=== PATIENT | female | born 2000 | race Caucasian/White ===

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

== ENCOUNTER 2018-10-01 01:41 | Emergency (ER) | payer OTHER ==
[2018-10-01 01:58] VITALS: BMI 35.2
[2018-10-01] MEDS ORDERED: ACETAMINOPHEN 500 MG TABLET (FP) PO ONE (02:10)
[2018-10-01] MEDS ORDERED: SODIUM CHLORIDE 1,000 ML IV STA (02:18)
--- NOTE | 2018-10-01 02:18 | PDOC ---
History of Present Illness - General Chief Complaint: Cold Symptoms Stated Complaint: FEVER/BACK PAIN/6MO Time Seen by Provider: 10/01/18 02:00 History Source: Patient Exam Limitations: No Limitations - History of Present Illness Initial Comments: 10/01/18 02:16 HISTORY OF PRESENT ILLNESS: This is a 18-year-old who is 24 weeks gestation presents emergency Department with 3 days of nasal congestion, fevers , sore throat, myalgias. Patient reports she felt symptoms were improving after a couple of days but have not which is why she is seeking care today. Patient denies any change in oral intake. She denies any nausea or vomiting. Patient reports taking Motrin for fevers and pain. Patient denies any RAT BREEDER complaints at this time. No recent travel or sick contacts. PAST MEDICAL HISTORY: Denies past medical history SURGICAL HISTORY: Denies ALLERGIES: No known drug allergies REVIEW OF SYSTEMS General/Constitutional: +fever. Denies weakness, weight change. HEENT: Denies change in vision. Denies ear pain or discharge. +sore throat. Cardiovascular: Denies chest pain or shortness of breath. Respiratory: Moist productive cough. Denies wheezing, or hemoptysis. Gastrointestinal: Denies nausea, vomiting, diarrhea or constipation. Denies rectal bleeding. Genitourinary: Denies dysuria, frequency, or change in urination. Musculoskeletal: +myalgias. Denies neck or back pain. Skin and breasts: Denies rash or easy bruising. Neurologic: Denies headache, vertigo, loss of consciousness, or loss of sensation. Psychiatric: Denies depression or anxiety. Endocrine: Denies increased thirst. Denies abnormal weight change. Hematologic/Lymphatic: Denies anemia, easy bleeding, or history of blood clots. Allergic/Immunologic: Denies hives or skin allergy. Denies latex allergy. PHYSICAL EXAM General Appearance: Well-appearing, appropriately dressed. No apparent distress , no intoxication. HEENT: EOMI, PERRLA, normal voice, TMs retracted bilaterally. No conjunctival pallor. No photophobia, scleral icterus. Oropharynx erythematous without lesions or exudate. Cobblestoning noted in the posterior. No nasal discharge present. Neck: Supple. Trachea midline. No tenderness, rigidity, carotid bruit, stridor , or thyromegaly. Nontender anterior cervical lymphadenopathy present. Respiratory/Chest: Lungs CTAB. No shortness of breath, chest tenderness, respiratory distress, accessory muscle use. No crackles, rales, rhonchi, stridor , wheezing, dullness Cardiovascular: RRR. S1, S2. No JVD, murmur, bradycardia, tachycardia. Vascular Pulses: Dorsalis-Pedis (R): 2+, Dorsalis-Pedis (L): 2+ Gastrointestinal/Abdominal: Normal bowel sounds. Gravid abdomen. No tenderness or rebound tenderness. No organomegaly, pulsatile mass, guarding, hernia, hepatomegaly, splenomegaly. Musculoskeletal/Extremities: Normal inspection. FROM of all extremities, normal capillary refill. Pelvis Stable. No CVA tenderness. No tenderness to extremities, pedal edema, swelling, erythema or deformity. Integumentary: Appropriate color, dry, warm. No cyanosis, erythema, jaundice or rash Neurologic: retail sales director II-XII intact. Fully oriented, alert. Appropriate mood/affect. Motor strength 5/5. No appreciable EOM palsy, facial droop or sensory deficit. Past History - Past Medical History Allergies/Adverse Reactions: Allergies Allergy/AdvReac Type Severity Reaction Status Date / Time No Known Allergies Allergy Verified 04/19/17 16:06 Home Medications: Ambulatory Orders Cephalexin Monohydrate [Keflex -] 500 mg PO BID #14 capsule 10/01/18 Asthma: No Cancer: No Cardiac Disorders: No COPD: No Diabetes: No HTN: No Seizures: No Thyroid Disease: No - Suicide/Smoking/Psychosocial Hx Smoking History: Unknown if ever smoked Have you smoked in the past 12 months: No Number of Cigarettes Smoked Daily: 0 Information on smoking cessation initiated: No Hx Alcohol Use: No Drug/Substance Use Hx: No Substance Use Type: None Hx Substance Use Treatment: No *Physical Exam - Vital Signs Last Vital Signs Temp Pulse Resp BP Pulse Ox 100.9 F H 134 H 20 120/73 97 10/01/18 01:48 10/01/18 01:48 10/01/18 01:48 10/01/18 01:48 10/01/18 01:48 Moderate Sedation - Procedure Monitoring Vital Signs: Procedure Monitoring Vital Signs Temperature 100.9 F H 10/01/18 01:48 Pulse Rate 134 H 10/01/18 01:48 Respiratory Rate 20 10/01/18 01:48 Blood Pressure 120/73 10/01/18 01:48 O2 Sat by Pulse Oximetry (%) 97 10/01/18 01:48 Medical Decision Making - Medical Decision Making 10/01/18 02:17 A/P: 18-year-old female at 24 weeks gestation with 3 days of flulike symptoms Influenza testing Urinalysis Urine culture Tylenol 975 mg orally Normal saline 1 L 10/01/18 03:57 Influenza testing is negative. Urinalysis with 2+ protein, trach's leuk esterase, 11 WBCs and 2 RBCs. As patient is of street urinary tract infection with Keflex 500 mg twice a day for 7 days. Patient to go to labor and delivery for assessment I discussed the physical exam findings, ancillary test results and final diagnoses with the patient. I answered all of the patient's questions. The patient was satisfied with the care received and felt comfortable with the discharge plan and treatment plan. The patient will call their primary care physician within 24 hours to arrange follow-up and will return to the Emergency Department with any new, persistent or worsening symptoms. *DC/Admit/Observation/Transfer Diagnosis at time of Disposition: UTI (urinary tract infection) Qualifiers: Urinary tract infection type: acute cystitis Hematuria presence: without hematuria Qualified Code(s): N30.00 - Acute cystitis without hematuria - Discharge Dispostion Disposition: HOME Condition at time of disposition: Stable Decision to Admit order: No - Prescriptions Prescriptions: Cephalexin Monohydrate [Keflex -] 500 mg PO BID #14 capsule - Referrals Referrals: Carey Montesinos MD [Staff Physician] - - Patient Instructions Printed Discharge Instructions: DI for Common Cold Additional Instructions: Rest, drink lots of fluids: Teas, water, soups Lots of handwashing and good hygiene Continue [id number] medications for symptomatic relief Tylenol or Motrin for fever and pain Continue all of antibiotics until completed Followup with private physician in one week for repeat urinalysis/reevaluation Return to emergency department for worsened symptoms, fevers, dehydration - Post Discharge Activity
[2018-10-01 02:32] LABS: URINE APPEARANCE CLEAR; URINE BILIRUBIN NEGATIVE (<2.0 mg/dL); URINE COLOR YELLOW; URINE GLUCOSE (UA) NEGATIVE (NEGATIVE); URINE KETONE NEGATIVE (NEGATIVE); URINE LEUK ESTERASE TRACE (NEGATIVE); URINE NITRITE NEGATIVE (NEGATIVE); URINE PROTEIN 2+ (NEGATIVE); URINE UROBILINOGEN 4.0 E.U/dl mg/dL (0.2-1.0)
[2018-10-01 02:33] LABS: EPI CELLS RARE /HPF (FEW); URINE BACTERIA RARE /hpf (NONE SEEN); URINE MUCUS RARE
[2018-10-01] MEDS ORDERED: ACETAMINOPHEN INJECTION 100 ML IVPB ONE (02:40)
[2018-10-01] MEDS ORDERED: ACETAMINOPHEN 325 MG TABLET (FP) ONE (02:43)
--- NOTE | 2018-10-01 02:45 | PDOC ---
*Physical Exam - Vital Signs Last Vital Signs Temp Pulse Resp BP Pulse Ox 100.9 F H 134 H 20 120/73 97 10/01/18 01:48 10/01/18 01:48 10/01/18 01:48 10/01/18 01:48 10/01/18 01:48 ED Treatment Course - ADDITIONAL ORDERS Additional order review: Laboratory Results 10/01/18 02:20 Urine Color Yellow Urine Appearance Clear Urine pH 7.0 Ur Specific [place] 1.014 Urine Protein 2+ H Urine Glucose (UA) Negative Urine Ketones Negative Urine Blood Negative Urine Nitrite Negative Urine Bilirubin Negative Urine Urobilinogen 4.0 e.u/dl H Ur Leukocyte Esterase Trace Urine WBC (Auto) 11 Urine RBC (Auto) 2 Ur Epithelial Cells Rare Urine Bacteria Rare Urine Mucus Rare - Medications Given in the ED: ED Medications Discontinued Medications Generic Name Dose Route Start Last Admin Trade Name Freq PRN Reason Stop Dose Admin Acetaminophen 975 mg 10/01/18 02:10 10/01/18 02:32 Tylenol - PO 10/01/18 02:11 975 mg ONCE ONE Administration Medical Decision Making - Medical Decision Making 10/01/18 02:44 Patient seen by the advanced practice provider under my direct supervision. Ancillary testing reviewed as necessary. I agree with plan as outlined by the advanced practice provider. *DC/Admit/Observation/Transfer Diagnosis at time of Disposition: UTI (urinary tract infection) Qualifiers: Urinary tract infection type: acute cystitis Hematuria presence: without hematuria Qualified Code(s): N30.00 - Acute cystitis without hematuria - Discharge Dispostion Disposition: HOME Condition at time of disposition: Stable - Prescriptions Prescriptions: Cephalexin Monohydrate [Keflex -] 500 mg PO BID #14 capsule - Referrals - Patient Instructions Additional Instructions: Rest, drink lots of fluids: Teas, water, soups Lots of handwashing and good hygiene Continue [id number] medications for symptomatic relief Tylenol or Motrin for fever and pain Continue all of antibiotics until completed Followup with private physician in one week for repeat urinalysis/reevaluation Return to emergency department for worsened symptoms, fevers, dehydration - Post Discharge Activity
[2018-10-01 04:49] VITALS: BP 113/59; PULSE 103; TEMP 97.7
== END 2018-10-01 05:30 | disposition home or self-care (01) ==
LOC: JER 01:41
PROC: 3E0337Z Introduction of Electrolytic and Water Balance Substance into Peripheral Vein, Percutaneous Approach (ICD-10-PCS; principal; 2018-10-01)
DX: N30.00 Acute cystitis without hematuria (principal); O26.892 Other specified pregnancy related conditions, second trimester; Z3A.24 24 weeks gestation of pregnancy
CPT/HCPCS: 81003; 81015; 87086; 87804; 96360; 99283-25; J7030

== ENCOUNTER 2019-01-03 13:50 | Inpatient (IN) | payer OTHER ==
[2019-01-03 14:56] VITALS: BMI 36.9
[2019-01-03 15:13] LABS: BASO % 0.4 % (0-2.0); EOS % 0.3 % (0-4.5); HEMATOCRIT 33.4 % (32.4-45.2); HEMOGLOBIN 11.3 GM/dL (10.7-15.3); LYMPH % 25.5 % (8-40); MCHC 33.6 g/dl (32.0-36.0); MEAN PLT VOLUME 10.7 fl (7.5-11.1); MONO % 3.5 % (3.8-10.2); NEUT % 70.3 % (42.8-82.8); PLATELET COUNT 209 K/MM3 (134-434); RBC 3.63 M/mm3 (3.60-5.2); RDW 14.2 % (11.6-15.6); WHITE BLOOD COUNT 10.3 K/mm3 (4.0-10.0)
[2019-01-03 15:27] LABS: CALCIUM 8.6 mg/dL (8.5-10.1); CREATININE 0.6 mg/dL (0.55-1.3); POTASSIUM 3.8 mmol/L (3.5-5.1)
[2019-01-03 15:30] LABS: INR 0.92 (0.83-1.09); PROTHROMBIN TIME (PATIENT) 10.9 SEC (9.7-13.0)
[2019-01-03] MEDS ORDERED: ELECTROLYTE-148 SOLN 1,000 ML IV SCH (15:30)
[2019-01-03 15:33] LABS: ACTIVATED PTT 27.7 SECONDS (25.2-36.5)
--- NOTE | 2019-01-03 15:38 | HP ---
Past Medical History - Admission Chief Complaint: Uterine contractions History of Present Illness: 18yo @ 39+ks here with uterine contractions. No VB/LOF. +FM. PNC at [address] [place] [address], uncomplicated History Source: Patient - Past Medical History APPEALS EXAMINER: No: Alzheimer's, CVA, Dementia, Migraine, Multiple Sclerosis, Peripheral Neuropathy, Parkinson's, Seizure, Syncope, TIA, Vertigo, Other Cardiovascular: No: AFIB, Aneurysm, Aortic Insufficiency, Aortic Stenosis, CAD, CHF, Deep Vein Thrombosis, HTN, Hyperlipdemia, MS, Mitral Insufficiency, Mitral Stenosis, Murmur, Pulmonary Hypertension, Other Pulmonary: No: Asthma, Bronchitis, Cancer, COPD, O2 Dependent, Pneumonia, Previously Intubated, Pulmonary Embolus, Pulmonary Fibrosis, Sleep Apnea, Other Gastrointestinal: No: Ascites, Cancer, Constipation, Crohn's Disease, Diverticulitis, Diverticulosis, Esophageal Varices, Gastritis, GERD, GI Bleed, Hemorrhoids, Hiatal Hernia, Inflamatory Bowel Disease, Irritable Bowel Disease, Pancreatitis, Peptic Ulcer Disease, Ulcerative Colitis, Other Hepatobiliary: No: Cirrhosis, Cholelithiasis, Cholecystitis, Choledocholithiasis , Hepatitis A, Hepatitis B, Hepatitis C, Other Renal/: No: Renal Failure, Renal Inusuff, BPH, Cancer, Hematuria, Hemodialysis , Neurogenic Bladder, Renal Calculi, UTI, Other Reproductive: No: Ectopic , Endometriosis, Fibroids, PID, Polycystic Ovary Syndrome, Postmenopausal, Other ...: 2 ...Para: 1 ...Term: 1 ...: 0 ...Spon : 0 ...Induced : 0 ...Multiple Gestation: 0 ...LMP: 04/01/18 ... Weeks Gestation by Dates: 39.4 ...EDC by Dates: 01/06/18 Heme/Onc: No: Anemia, B12 Deficiency, Bleeding Disorder, Cancer, Current Chemotherapy, Current Radiation Therapy, Hemochromatosis, Hypercoaguable State, Myeloproliferative Synd, Sickle Cell Disease, Sickle Cell Trait, Thrombocytopenia, Other Infectious Disease: No: AIDS, C-Diff, Herpes Zoster, HIV, MRSA, STD's, Tuberculosis, VREF, Other Psych: No: Addictions, Anxiety, Bipolar, Depression, Panic, Psychosis, Schizophrenia, Other Musculoskeletal: No: Bursitis, Chronic low back pain, Hemiparesis, Hemiplegia, Osteoarthritis, Paraplegia, Other Rheumatology: No: Fibromyalgia, Gout, Lupus, Rheumatoid Arthritis, Sarcoidosis, Vasculitis, Other ENT: No: Allergic Rhinitis, Sinusitis, Other Endocrine: No: Comal's Disease, Alexandr's Disease, Diabetes Insipidus, Diabetes Mellitus, Hyperparathyroidism, Hyperthyroidism, Hypothyroidism, Osteopenia, SIADH, Other Dermatology: No: Basal Cell, Cellulitis, Eczema, Melanoma, Psoriasis, Squamous Cell, Other - Past Surgical History Past Surgical History: Yes: None Hx Myomectomy: No Hx Transabdominal Cerclage: No - Smoking History Smoking history: Unknown if ever smoked Have you smoked in the past 12 months: No Aproximately how many cigarettes per day: 0 - Alcohol/Substance Use Hx Alcohol Use: No History of Substance Use: reports: None - Social History Usual Living Arrangement: Yes: Alone, With Spouse, With Significant Other ADL: Independent History of Recent Travel: No Home Medications - Allergies Allergies/Adverse Reactions: Allergies Allergy/AdvReac Type Severity Reaction Status Date / Time No Known Allergies Allergy Verified 01/03/19 14:19 - Home Medications Home Medications: Ambulatory Orders Tablet 1 tab PO DAILY 01/03/19 Physical Exam - Maternity Vital Signs: Vital Signs Temperature 98.3 F 01/03/19 15:00 Pulse Rate 100 H 01/03/19 15:00 Respiratory Rate 18 01/03/19 15:00 Blood Pressure 121/75 01/03/19 15:00 O2 Sat by Pulse Oximetry (%) Constitutional: Yes: Well Nourished, No Distress, Calm Eyes: Yes: WNL, Conjunctiva Clear, EOM Intact HENT: Yes: WNL, Atraumatic, Normocephalic Neck: Yes: WNL, Supple, Trachea Midline Cardiovascular: Yes: WNL, Regular Rate and Rhythm Breast(s): Yes: WNL - Abdominal Exam/OB Number of Fetuses: Single Presentation: Vertex Contractions: Yes Regularity: Regular Intensity: Mod/Strong Monitor Mode: External Heart Rate Location: LUQ Accelerations: Non-Uniform Decelerations: None - Vaginal Exam/OB Vaginal Bleediing: No Dilatation (cm): 6-7 Effacement (%): 100 Amniotic Membrane Status: Intact Presentation: Vertex/Position Station: -2 - Physical Exam Edema: No - Labs Lab Results: CBC, BMP 01/03/19 14:15 01/03/19 14:15 Assessment/Plan 18yo @ 39.4wks here in labor Admit to L&D NPO, IVFs GBS neg Cat I tracing AROM/pitocin prn Anticipate Alma Delia Gonzalez MD
--- NOTE | 2019-01-03 15:39 | PN ---
Progress Note, Labor Vaginal Exam #1 Labor Exam Date: 01/03/19 Labor Exam Time: 15:38 Heart Rate (range): Cat I Dilatation: 9 Effacement (%): 100 Amniotic Membrane Status: Ruptured Presentation: Vertex/Position Station: 0 Remarks: reddy WALLACE Anticipate Alma Delia Gonzalez MD
[2019-01-03] MEDS ORDERED: OXYTOCIN 20 UNITS in 0.9% NS 20 UNIT/1,000 ML INFUS.BAG IV ONE ×2 (15:42→17:19)
[2019-01-03] MEDS ORDERED: LIDOCAINE HCL 1% PRESERVATIVE FREE - 30ML VIAL ONE (15:43)
--- NOTE | 2019-01-03 16:10 | PN ---
Delivery - Delivery Vaginal Delivery: Spontaneous Type of Anesthesia: Local Episiotomy/Laceration: Midline, 1st degree EBL (cc): 400 Delivery, Single - Stages of Labor Placenta: Yes: Spontaneous - Condition of Nurse Practitioner Physicians Assistant/Fitness And Wellness Manager Present: No Gender: Male Position: Left, OA - 1 Minute Total Score: 9 5 Minutes Total Score: 9 - Feeding Plan Initial Plan: Elected not to breastfeed exclusively throughout hospitalization Remarks - Remarks Remarks: of VMI from PRACHI position over intact perineum. 39 week . No anesthesia. No nuchal or meconium. Spontaneous delivery of anterior shoulder. Infant placed on maternal abdomen. Cord clamped and cut. Weight pending. Apgars 9/9. Spontaneous delivery of intact placenta with 3VC. Fundus firm. Perineum inspected, small midline first degree laceration noted- repaired after 1% lidocaine injected, with 2-0 chromic. Good hemostasis and cosmesis. EBL 400. Mother and baby doing well. Sydney Gonzalez MD
[2019-01-03] MEDS ORDERED: METHYLERGONOVINE MALEATE 0.2 MG/1 ML AMP IM PRN (16:22)
[2019-01-03] MEDS ORDERED: BENZOCAINE 20% 57 GM BOTTLE TP PRN (16:22)
[2019-01-03] MEDS ORDERED: BENZOCAINE 28 GM HEMORRHOIDAL OINTMENT TP PRN (16:22)
[2019-01-03] MEDS ORDERED: WITCH HAZEL 50% (TUCKS) 40 PAD/JAR PAD TP PRN (16:22)
[2019-01-03] MEDS ORDERED: BISACODYL 10 MG SUPP.RECT RC PRN (16:22)
[2019-01-03] MEDS ORDERED: oxyCODONE HCL 5 MG TABLET PO PRN (16:22)
[2019-01-03] MEDS ORDERED: IBUPROFEN 600 MG TABLET (FP) PO ONE (16:24)
[2019-01-03] MEDS: IBUPROFEN 600 MG TABLET (FP) PO PRN (16:25)
[2019-01-03] MEDS: ACETAMINOPHEN 325 MG TABLET (FP) PO PRN (16:25)
[2019-01-03] MEDS ORDERED: ACETAMINOPHEN 325 MG TABLET (FP) ONE (16:25)
[2019-01-03] MEDS ORDERED: OXYTOCIN 20 UNITS in 0.9% NS 20 UNIT/1,000 ML INFUS.BAG IV SCH (16:30)
[2019-01-04 07:16] LABS: BASO % 0.5 % (0-2.0); EOS % 0.3 % (0-4.5); HEMATOCRIT 25.6 % (32.4-45.2); HEMOGLOBIN 8.7 GM/dL (10.7-15.3); MCH 31.4 pg (25.7-33.7); MCHC 34.1 g/dl (32.0-36.0); MEAN CELL VOLUME 92.1 fl (80-96); MEAN PLT VOLUME 10.4 fl (7.5-11.1); MONO % 5.1 % (3.8-10.2); NEUT % 72.1 % (42.8-82.8); PLATELET COUNT 164 K/MM3 (134-434); RBC 2.78 M/mm3 (3.60-5.2); RDW 14.1 % (11.6-15.6); WHITE BLOOD COUNT 7.8 K/mm3 (4.0-10.0)
[2019-01-04] MEDS: ACETAMINOPHEN 325 MG TABLET (FP) PO PRN ×2 (09:29→21:20)
[2019-01-04] MEDS: IBUPROFEN 600 MG TABLET (FP) PO PRN ×2 (09:30→21:21)
[2019-01-04] MEDS ORDERED: DIPHTH,PERTUSS(ACELL),TET 0.5 ML DISP.SYRIN IM ONE (10:00)
--- NOTE | 2019-01-04 11:24 | PN ---
Post Progress Note Post Day: 1 Type of Delivery: Vital Signs: Vital Signs Temperature 97.9 F 01/04/19 09:00 Pulse Rate 95 H 01/04/19 09:00 Respiratory Rate 18 01/04/19 09:00 Blood Pressure 107/63 01/04/19 09:00 O2 Sat by Pulse Oximetry (%) 100 01/03/19 17:00 Uterus: Yes: Fundus below umbilicus Abdomen/GI: Yes: Abdomen soft Lochia: Yes: Rubra Lochia, amount: Small Extremities: Yes: Calves non-tender Perineum: Yes: Intact, Laceration Activity: Ambulating - Labs Labs: CBC WBC 7.8 K/mm3 (4.0-10.0) 01/04/19 06:00 RBC 2.78 M/mm3 (3.60-5.2) L 01/04/19 06:00 Hgb 8.7 GM/dL (10.7-15.3) L 01/04/19 06:00 Hct 25.6 % (32.4-45.2) L D 01/04/19 06:00 MCV 92.1 fl (80-96) 01/04/19 06:00 MCH 31.4 pg (25.7-33.7) 01/04/19 06:00 MCHC 34.1 g/dl (32.0-36.0) 01/04/19 06:00 RDW 14.1 % (11.6-15.6) 01/04/19 06:00 Plt Count 164 K/MM3 (134-434) D 01/04/19 06:00 MPV 10.4 fl (7.5-11.1) 01/04/19 06:00 Absolute Neuts (auto) 5.6 K/mm3 (1.5-8.0) 01/04/19 06:00 Neutrophils % 72.1 % (42.8-82.8) 01/04/19 06:00 Lymphocytes % 22.0 % (8-40) 01/04/19 06:00 Monocytes % 5.1 % (3.8-10.2) 01/04/19 06:00 Eosinophils % 0.3 % (0-4.5) 01/04/19 06:00 Basophils % 0.5 % (0-2.0) 01/04/19 06:00 Nucleated RBC % 0 % (0-0) 01/04/19 06:00 Assessment/Plan 18yo s/p , PPD#1 Routine PP care Labs reviewed, anemia; iron BID Po Pain control D/C to home PPD#2 Alma Delia Gonzalez MD
[2019-01-04] MEDS: FERROUS SO4 325 MG TABLET (FP) PO SCH (21:19)
[2019-01-04] MEDS ORDERED: SENNOSIDES/DOCUSATE COMBO (SENNA PLUS) TABLET (UD) PO PRN (22:00)
[2019-01-05] MEDS: FERROUS SO4 325 MG TABLET (FP) PO SCH (07:41)
--- NOTE | 2019-01-05 09:01 | DS ---
Physical Examination Vital Signs: Vital Signs Temperature 98 F 01/04/19 22:00 Pulse Rate 105 H 01/04/19 22:00 Respiratory Rate 18 01/04/19 22:00 Blood Pressure 106/51 L 01/04/19 22:00 O2 Sat by Pulse Oximetry (%) 100 01/03/19 17:00 Constitutional: Yes: Well Nourished, No Distress, Calm Eyes: Yes: WNL, Conjunctiva Clear, EOM Intact HENT: Yes: WNL, Atraumatic, Normocephalic Neck: Yes: WNL, Supple, Trachea Midline Cardiovascular: Yes: WNL, Regular Rate and Rhythm Respiratory: Yes: WNL, Regular, CTA Bilaterally Gastrointestinal: Yes: WNL, Normal Bowel Sounds Musculoskeletal: Yes: WNL Extremities: Yes: WNL Edema: No Integumentary: Yes: WNL Neurological: Yes: WNL, Alert, Oriented ...Motor Strength: WNL Psychiatric: Yes: WNL Labs: CBC, BMP 01/04/19 06:00 01/03/19 14:15 Discharge Summary Reason For Visit: LABOR Procedures: Principal: Hospital Course: Patient presented in active labor She had an uncomplicated She met all milestones She was discharged home on PPD#2 M. MD Lisa Condition: Stable - Instructions Diet, Activity, Other Instructions: Regular Diet Referrals: Sydney Gonzalez MD [Staff Physician] - Disposition: HOME - Home Medications Comprehensive Discharge Medication List: Ambulatory Orders Tablet 1 tab PO DAILY 01/03/19 Ibuprofen 600 mg PO Q6H PRN #30 tablet 01/04/19
[2019-01-05 09:29] VITALS: BP 123/65; PULSE 86; TEMP 98.1
== END 2019-01-05 12:20 | disposition home or self-care (01) | DRG 560 ==
LOC: JLDR 13:50 → J3W 17:26
PROVIDERS: ADMIT Obstetrics & Gynecology; ATTEND Obstetrics & Gynecology
PROC: 0HQ9XZZ Repair Perineum Skin, External Approach (ICD-10-PCS; principal; 2019-01-03)
PROC: 10E0XZZ Delivery of Products of Conception, External Approach (ICD-10-PCS; 2019-01-03)
DX: O70.0 First degree perineal laceration during delivery (principal); Z3A.39 39 weeks gestation of pregnancy; Z37.0 Single live birth; O90.81 Anemia of the puerperium
CPT/HCPCS: 36415; 59409; 80048; 85025; 85610; 85730; 86593; 86850; 86900; 86901; 90715

== ENCOUNTER 2020-11-05 21:51 | Emergency (ER) | payer OTHER ==
[2020-11-05 22:00] VITALS: BMI 32.1
[2020-11-06 03:05] LABS: EPI CELLS 8 /uL (0-25.1); HYALINE CASTS 2 /uL (0-3.1); URINE APPEARANCE CLEAR; URINE BACTERIA 5587 /uL (0-1359); URINE BILIRUBIN NEGATIVE (NEGATIVE); URINE COLOR DK YELLOW; URINE GLUCOSE (UA) NEGATIVE (NEGATIVE); URINE KETONE TRACE (NEGATIVE); URINE LEUK ESTERASE TRACE (NEGATIVE); URINE NITRITE NEGATIVE (NEGATIVE); URINE PROTEIN 2+ (NEGATIVE); URINE RBC 40 /uL (0-23.9); URINE WBC 131 /uL (0-25.8)
[2020-11-06 03:45] VITALS: BP 117/64; PULSE 101; TEMP 97.6
== END 2020-11-06 03:15 | disposition home or self-care (01) ==
LOC: JER 21:51
DX: R10.9 Unspecified abdominal pain (principal)
CPT/HCPCS: 81003; 99283-25

== ENCOUNTER 2021-01-17 16:20 | Inpatient (IN) | payer OTHER ==
[2021-01-17] MEDS: DEXTROSE 5%-LACTATED RINGERS 1,000 ML IV SCH (17:30)
[2021-01-17 18:03] LABS: BASO % 0.5 % (0-2.0); EOS % 0.5 % (0-4.5); HEMATOCRIT 31.9 % (32.4-45.2); HEMOGLOBIN 10.8 GM/dL (10.7-15.3); LYMPH % 15.3 % (8-40); MCH 31.8 pg (25.7-33.7); MCHC 33.9 g/dl (32.0-36.0); MEAN CELL VOLUME 93.7 fl (80-96); MEAN PLT VOLUME 10.9 fl (7.5-11.1); MONO % 4.1 % (3.8-10.2); NEUT % 79.6 % (42.8-82.8); PLATELET COUNT 181 K/MM3 (134-434); RBC 3.41 M/mm3 (3.60-5.2); RDW 13.7 % (11.6-15.6); WHITE BLOOD COUNT 8.3 K/mm3 (4.0-10.0)
[2021-01-17 18:05] VITALS: BMI 35.6
[2021-01-17 18:10] LABS: INR 0.93 (0.83-1.09); PROTHROMBIN TIME (PATIENT) 11.5 SEC (9.7-13.0)
[2021-01-17 18:13] LABS: ACTIVATED PTT 26.5 SECONDS (25.2-36.5)
[2021-01-17] MEDS ORDERED: PROMETHAZINE HCL 25 MG/1 ML VIAL IVPUSH ONE (18:16)
[2021-01-17] MEDS ORDERED: BUTORPHANOL TARTRATE 2 MG/ML VIAL IVPB ONE (18:16)
[2021-01-17] MEDS ORDERED: OXYTOCIN 30 UNITS in 0.9% NS 30 UNIT/500 ML INFUS.BAG IVPB ONE (18:21)
[2021-01-17 18:26] LABS: ALBUMIN 2.3 g/dl (3.4-5.0); BLOOD UREA NITROGEN 9.5 mg/dL (7-18); CALCIUM 8.8 mg/dL (8.5-10.1)
[2021-01-17 18:29] LABS: CREATININE 0.5 mg/dL (0.55-1.3)
[2021-01-17] MEDS ORDERED: OXYTOCIN 30 UNITS in 0.9% NS 30 UNIT/500 ML INFUS.BAG IVPB SCH (18:30)
[2021-01-17 18:31] LABS: BILIRUBIN,TOTAL 0.4 mg/dL (0.2-1); TOT PROT 6.1 g/dl (6.4-8.2)
[2021-01-18] MEDS ORDERED: PROMETHAZINE HCL 25 MG/1 ML VIAL ONE (01:50)
[2021-01-18] MEDS ORDERED: BUTORPHANOL TARTRATE 2 MG/ML VIAL ONE (01:50)
[2021-01-18] MEDS: DEXTROSE 5%-LACTATED RINGERS 1,000 ML IV SCH (01:55)
[2021-01-18] MEDS ORDERED: OXYTOCIN 20 UNITS in 0.9% NS 20 UNIT/1,000 ML INFUS.BAG IV ONE (02:56)
[2021-01-18] MEDS ORDERED: LIDOCAINE HCL 1% PRESERVATIVE FREE - 30ML VIAL ONE (02:56)
[2021-01-18] MEDS ORDERED: WITCH HAZEL 50% (TUCKS) 40 PAD/JAR PAD TP PRN (03:48)
[2021-01-18] MEDS ORDERED: BISACODYL 10 MG SUPP.RECT RC PRN (03:48)
[2021-01-18] MEDS ORDERED: BENZOCAINE 28 GM HEMORRHOIDAL OINTMENT TP PRN (03:48)
[2021-01-18] MEDS ORDERED: BENZOCAINE 20% 57 GM BOTTLE TP PRN (03:48)
[2021-01-18] MEDS ORDERED: METHYLERGONOVINE MALEATE 0.2 MG/1 ML AMP IM PRN (03:48)
[2021-01-18] MEDS ORDERED: OXYTOCIN 20 UNITS in 0.9% NS 20 UNIT/1,000 ML INFUS.BAG IV SCH (04:00)
[2021-01-18 04:57] LABS: CORD BASE EXCESS -9.6 mmol/L (0-2); CORD HCO3 19.3 mmHg (20-29); CORD PCO2 53.4 mmHg (30-78); CORD pH 7.177 (7.14-7.44)
[2021-01-18 05:02] LABS: CORD BASE EXCESS -4.4 mmol/L (0-2); CORD HCO3 20.9 mmHg (20-29); CORD PCO2 39.1 mmHg (30-78); CORD pH 7.345 (7.14-7.44)
[2021-01-18] MEDS: FERROUS SO4 325 MG TABLET (FP) PO SCH ×2 (08:31→17:16)
[2021-01-18] MEDS: IBUPROFEN 600 MG TABLET (FP) PO PRN ×3 (08:31→20:09)
[2021-01-18] MEDS: ACETAMINOPHEN 325 MG TABLET (FP) PO PRN ×3 (08:32→20:09)
[2021-01-18] MEDS: PRENATAL VITAMINS W/ FOLIC ACID TABLET (FP) PO SCH (09:33)
[2021-01-19] MEDS: IBUPROFEN 600 MG TABLET (FP) PO PRN ×2 (03:26→09:48)
[2021-01-19] MEDS: ACETAMINOPHEN 325 MG TABLET (FP) PO PRN ×2 (03:26→09:48)
[2021-01-19 08:12] LABS: BASO % 0.6 % (0-2.0); HEMATOCRIT 28.7 % (32.4-45.2); HEMOGLOBIN 9.9 GM/dL (10.7-15.3); LYMPH % 26.4 % (8-40); MCH 32.4 pg (25.7-33.7); MCHC 34.5 g/dl (32.0-36.0); MEAN CELL VOLUME 93.8 fl (80-96); MEAN PLT VOLUME 10.3 fl (7.5-11.1); PLATELET COUNT 166 K/MM3 (134-434); RBC 3.06 M/mm3 (3.60-5.2); RDW 14.1 % (11.6-15.6)
[2021-01-19] MEDS: FERROUS SO4 325 MG TABLET (FP) PO SCH (09:48)
[2021-01-19] MEDS: PRENATAL VITAMINS W/ FOLIC ACID TABLET (FP) PO SCH (09:49)
[2021-01-19 11:04] VITALS: BP 110/75; PULSE 80; TEMP 97.8
[2021-01-19] MEDS ORDERED: SENNOSIDES/DOCUSATE COMBO (SENNA PLUS) TABLET (UD) PO PRN (22:00)
== END 2021-01-19 12:10 | disposition home or self-care (01) | DRG 560 ==
LOC: JLDR 16:20 → J3W 01-18 06:06
PROVIDERS: ADMIT Obstetrics & Gynecology; ATTEND Obstetrics & Gynecology
PROC: 10E0XZZ Delivery of Products of Conception, External Approach (ICD-10-PCS; principal; 2021-01-17)
PROC: 3E033VJ Introduction of Other Hormone into Peripheral Vein, Percutaneous Approach (ICD-10-PCS; 2021-01-17)
DX: O76 Abnormality in fetal heart rate and rhythm complicating labor and delivery (principal); O26.613 Liver and biliary tract disorders in pregnancy, third trimester; K80.20 Calculus of gallbladder without cholecystitis without obstruction; O99.02 Anemia complicating childbirth; D64.9 Anemia, unspecified; Z3A.39 39 weeks gestation of pregnancy; Z86.19 Personal history of other infectious and parasitic diseases; Z37.0 Single live birth
CPT/HCPCS: 36415; 36600; 59409; 80053; 82803; 85025; 85610; 85730; 86769; 86780; 86850; 86900; 86901; C9803; U0003; U0005

== ENCOUNTER 2021-03-12 04:22 | Inpatient (IN) | payer OTHER ==
[2021-03-12 04:49] VITALS: BMI 33.0
[2021-03-12] MEDS ORDERED: ACETAMINOPHEN 1000 MG/100 ML VIAL (NON FORMULARY) IVPB ONE (05:24)
[2021-03-12] MEDS ORDERED: ACETAMINOPHEN INJECTION 100 ML IVPB ONE (05:26)
[2021-03-12] MEDS ORDERED: SODIUM CHLORIDE 0.9% 500 ML INFUS.BAG IV ONE (05:36)
[2021-03-12 05:45] LABS: BASO % 0.6 % (0-2.0); EOS % 1.3 % (0-4.5); HEMATOCRIT 36.6 % (32.4-45.2); HEMOGLOBIN 12.6 GM/dL (10.7-15.3); LYMPH % 14.3 % (8-40); MCH 30.8 pg (25.7-33.7); MCHC 34.4 g/dl (32.0-36.0); MEAN CELL VOLUME 89.7 fl (80-96); MEAN PLT VOLUME 9.1 fl (7.5-11.1); MONO % 4.5 % (3.8-10.2); NEUT % 79.3 % (42.8-82.8); PLATELET COUNT 254 10^3/uL (134-434); RBC 4.07 M/mm3 (3.60-5.2); RDW 13.5 % (11.6-15.6); WHITE BLOOD COUNT 7.4 K/mm3 (4.0-10.0)
[2021-03-12 05:56] LABS: EPI CELLS >36 /uL (0-25.1); HYALINE CASTS 1 /uL (0-3.1); URINE APPEARANCE CLOUDY; URINE BACTERIA 276 /uL (0-1359); URINE BILIRUBIN 2+ (NEGATIVE); URINE COLOR DK YELLOW; URINE GLUCOSE (UA) NEGATIVE (NEGATIVE); URINE KETONE NEGATIVE (NEGATIVE); URINE LEUK ESTERASE TRACE (NEGATIVE); URINE NITRITE NEGATIVE (NEGATIVE); URINE PROTEIN 2+ (NEGATIVE); URINE WBC 37 /uL (0-25.8)
[2021-03-12 05:58] LABS: ALBUMIN 3.7 g/dl (3.4-5.0); BLOOD UREA NITROGEN 11.1 mg/dL (7-18); CALCIUM 8.8 mg/dL (8.5-10.1)
[2021-03-12 06:02] LABS: CREATININE 0.8 mg/dL (0.55-1.3)
[2021-03-12 06:03] LABS: BILIRUBIN,TOTAL 3.8 mg/dL (0.2-1); TOT PROT 7.5 g/dl (6.4-8.2)
[2021-03-12 08:45] LABS: URINE RBC 245.1 /uL (0-23.9); YEAST NO SEEN (NEGATIVE)
[2021-03-12 13:12] VITALS: BP 99/70; PULSE 76; TEMP 98
== END 2021-03-12 14:50 | disposition left against medical advice (07) ==
LOC: JER 04:22 → JERBED 09:27
PROVIDERS: ADMIT Internal Medicine; ATTEND Internal Medicine
DX: K80.80 Other cholelithiasis without obstruction (principal); R10.11 Right upper quadrant pain
CPT/HCPCS: 36415; 76705-TC; 80053; 81003; 84703; 85025; 93005; 93010; 99285-25; C9803; J0131; U0003; U0005

== ENCOUNTER 2023-04-14 12:43 | Emergency (ER) | payer OTHER ==
[2023-04-14 12:47] VITALS: BP 113/77; PULSE 91; RESP 18; TEMP 98.1; BMI 34.0
[2023-04-14] MEDS ORDERED: ACETAMINOPHEN 500 MG TABLET (FP) PO ONE (13:58)
[2023-04-14] MEDS ORDERED: IBUPROFEN 600 MG TABLET (FP) PO ONE ×2 (13:58→14:06)
[2023-04-14] MEDS ORDERED: ACETAMINOPHEN 500 MG TABLET (FP) ONE (14:06)
== END 2023-04-14 14:49 | disposition home or self-care (01) ==
LOC: JERFT 12:43
DX: S93.491A Sprain of other ligament of right ankle, initial encounter (principal); X50.1XXA Overexertion from prolonged static or awkward postures, initial encounter
CPT/HCPCS: 73610-TC-RT-FY; 73630-TC-RT-FY; 99283-25

== ENCOUNTER 2024-03-24 01:42 | Inpatient (IN) | payer OTHER ==
[2024-03-24 01:52] VITALS: BMI 33.0
[2024-03-24] MEDS ORDERED: ACETAMINOPHEN INJECTION 100 ML IVPB ONE (03:09)
[2024-03-24] MEDS ORDERED: PIPERACILLIN/TAZOB 4.5 GM 4.5 GM/100 ML BAG IVPB ONE (03:09)
[2024-03-24 03:24] LABS: VENOUS BASE EXCESS -0.1 mmol/L (-2-2); VENOUS O2 SATURATION 33.4 % (70-80); VENOUS PCO2 46.5 mmHg (38-52); VENOUS PH 7.361 (7.310-7.410)
[2024-03-24 03:25] LABS: BASO % 1.1 % (0-2.0); EOS % 5.5 % (0-4.5); HEMATOCRIT 29.8 % (32.4-45.2); HEMOGLOBIN 10.2 GM/dL (10.7-15.3); LYMPH % 23.3 % (8-40); MCH 30.7 pg (25.7-33.7); MCHC 34.1 g/dl (32.0-36.0); MEAN CELL VOLUME 90.1 fl (80-96); MEAN PLT VOLUME 8.8 fl (7.5-11.1); MONO % 6.6 % (3.8-10.2); NEUT % 63.5 % (42.8-82.8); PLATELET COUNT 387 10^3/uL (134-434); RBC 3.31 M/mm3 (3.60-5.2); RDW 14.1 % (11.6-15.6); WHITE BLOOD COUNT 7.7 K/mm3 (4.0-10.0)
[2024-03-24] MEDS: ACETAMINOPHEN 1000 MG/100 ML BAG IVPB ONE (03:30)
[2024-03-24] MEDS: SODIUM CHLORIDE 0.9% 500 ML INFUS.BAG IV ONE ×2 (03:30→04:53)
[2024-03-24 03:34] LABS: INR 1.1 (0.83-1.09); PROTHROMBIN TIME (PATIENT) 12.6 SEC (9.7-13.0)
[2024-03-24 03:37] LABS: ACTIVATED PTT 31.1 SECONDS (25.2-36.5)
[2024-03-24 03:42] LABS: POTASSIUM 4.3 mmol/L (3.5-5.1)
[2024-03-24 03:44] LABS: ALBUMIN 3.2 g/dl (3.4-5.0); CALCIUM 9.4 mg/dL (8.5-10.1)
[2024-03-24 03:47] LABS: CREATININE 0.7 mg/dL (0.55-1.3)
[2024-03-24] MEDS: PIPERACILLIN/TAZOB 4.5 GM 4.5 GM in DEXTROSE 5%-WATER 100 ML IVPB ONE (03:47)
[2024-03-24 03:49] LABS: BILIRUBIN,TOTAL 0.6 mg/dL (0.2-1); TOT PROT 6.7 g/dl (6.4-8.2)
[2024-03-24 04:06] LABS: EPI CELLS >36 /uL (0-25.1); HYALINE CASTS 0 /uL (0-3.1); URINE APPEARANCE CLEAR; URINE BACTERIA 857 /uL (0-1359); URINE BILIRUBIN NEGATIVE (NEGATIVE); URINE COLOR YELLOW; URINE GLUCOSE (UA) NEGATIVE (NEGATIVE); URINE KETONE NEGATIVE (NEGATIVE); URINE LEUK ESTERASE 1+ (NEGATIVE); URINE NITRITE NEGATIVE (NEGATIVE); URINE PROTEIN NEGATIVE (NEGATIVE); URINE RBC 46 /uL (0-23.9); URINE UROBILINOGEN 0.2 mg/dL (0.2-1.0); URINE WBC 77 /uL (0-25.8)
[2024-03-24] MEDS ORDERED: VANCOMYCIN 1 GRAM (PRE-DOCKED) 1,000 MG/250 ML BAG IVPB ONE ×2 (04:23→09:43)
[2024-03-24] MEDS: VANCOMYCIN 1,000 MG in DEXTROSE 5%-WATER - 250 ML IVPB ONE (04:52)
[2024-03-24] MEDS: LACTATED RINGERS SOLUTION 1000 ML INFUS.BAG IV ONE (06:10)
[2024-03-24] MEDS: CLINDAMYCIN 900 MG PREMIX IVPB 900 MG/50 ML BAG IVPB ONE (06:56)
[2024-03-24] MEDS ORDERED: ACETAMINOPHEN 325 MG TABLET (FP) PO PRN (08:51)
[2024-03-24] MEDS ORDERED: ENOXAPARIN NA (PORCINE) 40 MG/0.4 ML DISP.SYRIN SQ SCH (10:00)
[2024-03-24 12:26] LABS: HIV INTERPRETATION NEGATIVE (NEGATIVE)
[2024-03-24] MEDS ORDERED: MIDAZOLAM HCL 2 MG/2 ML SINGLE DOSE VIAL ONE (13:50)
[2024-03-24] MEDS ORDERED: FENTANYL CITRATE/PF 50 MCG/ML VIAL ONE (13:50)
[2024-03-24] MEDS: SODIUM CHLORIDE 500 ML IV ONE (14:30)
[2024-03-24] MEDS: FENTANYL CITRATE/PF 50 MCG/ML VIAL IVPUSH ONE (14:32)
[2024-03-24] MEDS: ACETAMINOPHEN 325 MG TABLET (FP) PO PRN (21:49)
[2024-03-25] MEDS: VANCOMYCIN/WATER FOR INJ (PEG) 1,000 MG/200 ML BAG IVPB SCH ×2 (05:14→18:03)
[2024-03-25 08:40] LABS: BASO % 1.2 % (0-2.0); EOS % 8.7 % (0-4.5); HEMATOCRIT 30.7 % (32.4-45.2); HEMOGLOBIN 10.4 GM/dL (10.7-15.3); LYMPH % 24.3 % (8-40); MEAN PLT VOLUME 8.8 fl (7.5-11.1); MONO % 6.5 % (3.8-10.2); NEUT % 59.3 % (42.8-82.8); PLATELET COUNT 363 10^3/uL (134-434); RBC 3.37 M/mm3 (3.60-5.2); RDW 13.7 % (11.6-15.6); WHITE BLOOD COUNT 6.1 K/mm3 (4.0-10.0)
[2024-03-25 09:09] LABS: POTASSIUM 3.8 mmol/L (3.5-5.1)
[2024-03-25 09:18] LABS: ALBUMIN 3.1 g/dl (3.4-5.0); BLOOD UREA NITROGEN 8.2 mg/dL (7-18); CALCIUM 9.6 mg/dL (8.5-10.1)
[2024-03-25 09:19] LABS: MAGNESIUM 1.8 mg/dL (1.8-2.4)
[2024-03-25 09:21] LABS: CREATININE 0.7 mg/dL (0.55-1.3); PHOSPHOROUS 3.7 mg/dL (2.5-4.9)
[2024-03-25 09:22] LABS: BILIRUBIN,TOTAL 0.5 mg/dL (0.2-1); TOT PROT 6.6 g/dl (6.4-8.2)
[2024-03-25] MEDS: PIPERACILLIN/TAZOB 4.5 GM 4.5 GM in DEXTROSE 5%-WATER 100 ML IVPB SCH (10:01)
[2024-03-25] MEDS: VANCOMYCIN 1,000 MG in DEXTROSE 5%-WATER - 250 ML IVPB SCH (10:41)
[2024-03-26 06:56] VITALS: RESP 18
[2024-03-26 10:54] LABS: BASO % 1.1 % (0-2.0); EOS % 9.1 % (0-4.5); HEMATOCRIT 30.2 % (32.4-45.2); HEMOGLOBIN 10.3 GM/dL (10.7-15.3); LYMPH % 28.2 % (8-40); MCH 31.1 pg (25.7-33.7); MCHC 34.3 g/dl (32.0-36.0); MEAN CELL VOLUME 90.8 fl (80-96); MEAN PLT VOLUME 8.6 fl (7.5-11.1); MONO % 4.7 % (3.8-10.2); NEUT % 56.9 % (42.8-82.8); PLATELET COUNT 376 10^3/uL (134-434); RBC 3.32 M/mm3 (3.60-5.2); RDW 13.6 % (11.6-15.6); WHITE BLOOD COUNT 5.7 K/mm3 (4.0-10.0)
[2024-03-26 11:14] LABS: POTASSIUM 3.8 mmol/L (3.5-5.1)
[2024-03-26 11:17] LABS: BLOOD UREA NITROGEN 7.5 mg/dL (7-18); CALCIUM 9.7 mg/dL (8.5-10.1)
[2024-03-26 11:21] LABS: CREATININE 0.8 mg/dL (0.55-1.3)
[2024-03-26] MEDS ORDERED: VANCOMYCIN/WATER 1250 MG 1,250 MG/250 ML BAG IVPB SCH (20:45)
[2024-03-26] MEDS: VANCOMYCIN/WATER 1250 MG 1,250 MG/250 ML BAG IVPB SCH (22:00)
[2024-03-27 06:58] VITALS: BP 100/60; PULSE 88; TEMP 99
[2024-03-27 08:35] LABS: BASO % 0.9 % (0-2.0); EOS % 9.1 % (0-4.5); HEMATOCRIT 31.6 % (32.4-45.2); HEMOGLOBIN 10.8 GM/dL (10.7-15.3); LYMPH % 16.9 % (8-40); MCH 30.6 pg (25.7-33.7); MCHC 34.2 g/dl (32.0-36.0); MEAN CELL VOLUME 89.6 fl (80-96); MEAN PLT VOLUME 8.6 fl (7.5-11.1); MONO % 7.4 % (3.8-10.2); NEUT % 65.7 % (42.8-82.8); PLATELET COUNT 338 10^3/uL (134-434); RBC 3.53 M/mm3 (3.60-5.2); RDW 14.1 % (11.6-15.6); WHITE BLOOD COUNT 5.3 K/mm3 (4.0-10.0)
[2024-03-27 09:16] LABS: POTASSIUM 3.9 mmol/L (3.5-5.1)
[2024-03-27 09:19] LABS: BLOOD UREA NITROGEN 8.7 mg/dL (7-18); CALCIUM 10.2 mg/dL (8.5-10.1)
[2024-03-27 09:23] LABS: CREATININE 0.7 mg/dL (0.55-1.3)
== END 2024-03-27 14:59 | disposition home or self-care (01) | DRG 721 ==
LOC: JER 01:42 → JERBED 05:25 → J8W 19:18
PROVIDERS: ADMIT Internal Medicine; ATTEND Internal Medicine
PROC: 0W9F30Z Drainage of Abdominal Wall with Drainage Device, Percutaneous Approach (ICD-10-PCS; principal; 2024-03-24)
DX: T81.49XA Infection following a procedure, other surgical site, initial encounter (principal); L02.211 Cutaneous abscess of abdominal wall; B95.7 Other staphylococcus as the cause of diseases classified elsewhere; Y83.8 Other surgical procedures as the cause of abnormal reaction of the patient, or of later complication, without mention of misadventure at the time of the procedure
CPT/HCPCS: 0241U-QW; 36415; 49406; 71045-TC-FY; 74177-TC; 80048; 80053; 81003; 82803; 83605; 83735; 84100; 84484; 84703; 85025; 85610; 85651; 85730; 86140; 86803; 86850; 86900; 86901; 87040; 87070; 87075; 87076; 87077; 87086; 87102; 87116; 87205; 87206; 87210; 87389; 93005; 93010; 99285-25; G0463; G0480; J0131